=== PATIENT | male | born 1985 | race Caucasian/White ===

== ENCOUNTER 2018-06-13 05:05 | Emergency (ER) | payer SELFPAY ==
[~2018-06-13] VITALS: Ht 188 cm; Wt 98.0 kg
[~2018-06-13 05:05] MED LIST: ACHD5005 PO; AZIT-21 PO; BSP10T PO; CHLO100T22; FAMO20TA5 PO; HYDR1TAB PO; IBP800T PO; TRL300
[2018-06-13 05:13] VITALS: BP 120/114
--- NOTE | 2018-06-13 05:46 | ED Psychosocial ---
General Chief Complaint: Psych/Social Disorder Stated Complaint: PSYCH EVAL Source: patient Exam Limitations: intoxication (PT APPEARS TO BE UNDER THE INFLUENCE OF SOME SUBSTANCE/S AND CANNOT COMPLETE SENTENCES AND SPEECH IS ERRATIC. ) History of Present Illness Date Seen by Provider: Jun 13, 2018 Time Seen by Provider: 05:20 Initial Comments PT ARRIVES VIA POV PT STATES "I'M A IV DRUG USER" "METH" STATES HE WANTS 'DETOX" PT CLAIMS HE HAS NOT USED METH FOR 3-4 DAYS, AND CLAIMS HE JUST GOT OUT OF SENIOR CARE 3-4 DAYS AGO PT STATES "I'M PARANOID SCHIZOPHRENIC" PT STATES HE HAS BEEN ON SEROQUEL AND REMERON, BUT IS UNABLE TO STATE WHEN HE LAST TOOK ANY MEDICATIONS, BUT DOES STATE HE HAS NOT HAD ANY SINCE HE HAS BEEN OUT OF SENIOR CARE PT'S SPEECH IS VERY ERRATIC AND DIFFICULTY COMPLETING SENTENCES PT STATES "OK YOU'RE KBI. I DON'T WANT TO TALK TO YOU ANYMORE, YOU'RE NOT A DR. I CAN TELL BY YOUR HANDS. I KNOW YOU-YOU USED TO RIDE AROUND WITH MY SISTER" 0540- PT NOW STATES HE IS LEAVING AND PROMPTLY LEFT ER. (PT REPORTEDLY WALKED TO ER). PT LEFT BEFORE EXAM AND LAB COULD BE COMPLETED. PT NOTED TO BE TALKING TO HIMSELF NONSENSICALLY PT DID NOT MAKE ANY SUICIDAL THREATS AND DID NOT MAKE ANY THREATS TO STAFF PCP: CAMERON CAPONE, [facility] Allergies and Home Medications Allergies Uncoded Allergies: PCN (Allergy, Mild, 01/28/09) Home Medications Buspirone Hcl 10 Mg Tablet, 1 TAB PO TID, (Reported) Hydrocodone Bit/Acetaminophen 1 Each Tablet, 1-2 EACH PO Q6H PRN Prescribed by: FLAKO BERGER on 03/11/12 1258 Ibuprofen 800 Mg Tab, 800 MG PO Q8HR PRN Prescribed by: FLAKO BERGER on 03/11/12 1258 Patient Home Medication List Home Medication List Reviewed: Yes Review of Systems Constitutional: other (UNABLE TO OBTAIN) Past Osjmnyf-Uovmbd-Ureyoi Hx Patient Social History Recreational Drug Use: Yes (+ IV METH USE) Drug of Choice: + IV METH USE Smoking Status: Current Everyday Smoker Type Used: Cigarettes Past Medical History Psychosocial: Yes (+ IV METH USE) Schizophrenia Physical Exam Vital Signs - First Documented 06/13/18 05:13 Temp 100.1 Pulse 113 Resp 22 B/P (MAP) 120/114 (116) Pulse Ox 98 O2 Delivery Room Air Capillary Refill : Height, Weight, BMI Height: 6'2" Weight: 215lbs. oz. 97.037440mp; BMI Method:Stated General Appearance: other (PT APPEARS TO BE UNDER THE INFLUENCE OF SOME SUBSTANCE/S. PT WITH CONSTANT MOVEMENTS OF ENTIRE BODY AND MOUTH, SPEECH RAPID AND ERRATIC, WITH DIFFICULTY COMPLETING SENTENCES. UNABLE TO PERFORM REST OF EXAM DUE TO PT WANTING ME TO LEAVE ROOM AND THEN PT PROMPTLY LEFT ER. ) Neurologic/Psychiatric: other ( ABOVE) Appearance/Memory: disheveled, impaired insight Behavior/Eye Contact: increased rate of speech, other (TALKING TO HIMSELF NON- SENSICALLY ) Thoughts/Hallucinations: delusions, flight of ideas, paranoid Skin: tattoos/piercings (EXTENSIVE TATTOOS) Progress/Results/Core Measures Results/Orders My Orders Orders - MARICHUY SANCHES DO Ua Culture If Indicated (06/13/18 05:37) Thyroid Analyzer (06/13/18 05:37) Drug Screen Stat (Urine) (06/13/18 05:37) Cbc With Automated Diff (06/13/18 05:37) Comprehensive Metabolic Panel (06/13/18 05:37) Alcohol (06/13/18 05:37) Acetaminophen (06/13/18 05:37) Salicylate (06/13/18 05:37) Ekg Tracing (06/13/18 05:37) Vital Signs/I&O 06/13/18 05:13 Temp 100.1 Pulse 113 Resp 22 B/P (MAP) 120/114 (116) Pulse Ox 98 O2 Delivery Room Air Departure Impression Primary Impression: Left against medical advice Disposition: 07 AGAINST MEDICAL ADVICE Condition: Against Medical Advice Departure-Patient Inst. Referrals: [facility] (PCP/Family) Primary Care Physician MARICHUY SANCHES DO Jun 13, 2018 05:46
== END 2018-06-13 05:41 | disposition left against medical advice (07) ==
LOC: EDUNIT# 05:05 → ER 05:06
DX: R46.2 Strange and inexplicable behavior (principal); R47.81 Slurred speech; F20.9 Schizophrenia, unspecified; F15.10 Other stimulant abuse, uncomplicated; F17.210 Nicotine dependence, cigarettes, uncomplicated; Z88.0 Allergy status to penicillin
CPT/HCPCS: 93005; 99284

== ENCOUNTER 2018-06-13 07:58 | Emergency (ER) | payer SELFPAY ==
[~2018-06-13] VITALS: Ht 188 cm; Wt 97.5 kg
[2018-06-13] MEDS ORDERED: OLANZapine 5 MG ODT (ZyPREXA ZYDIS) ONE (08:23)
[2018-06-13] MEDS ORDERED: NS IV 1000 ML 1,000 ML IV ONE (08:25)
[2018-06-13] MEDS ORDERED: OLANZapine 5 MG ODT (ZyPREXA ZYDIS) PO ONE (08:30)
--- NOTE | 2018-06-13 08:33 | ED Psychosocial ---
General Stated Complaint: PSYCH EVAL;PARANOIA Source: patient Exam Limitations: no limitations (ANGIE GONZALEZ MD) History of Present Illness Date Seen by Provider: Jun 13, 2018 Time Seen by Provider: 08:05 Initial Comments Here with report of paranoia. Very challenging history due to his paranoia. He states that he doesn't want to hurt anybody he doesn't want to hurt himself but he believes the still operator brandy were trying to get him. He states he just got out of retirement. Reports using IV methamphetamine 3 days ago but none since. Apparently has history of methamphetamine abuse. Denies injury. Timing/Duration: getting worse Severity: moderate Associated Symptoms: anxiety, impaired concentration (ANGIE GONZALEZ MD) Allergies and Home Medications Allergies Uncoded Allergies: PCN (Allergy, Mild, 01/28/09) Home Medications Buspirone Hcl 10 Mg Tablet, 1 TAB PO TID, (Reported) Hydrocodone Bit/Acetaminophen 1 Each Tablet, 1-2 EACH PO Q6H PRN Prescribed by: FLAKO BERGER on 03/11/12 1258 Ibuprofen 800 Mg Tab, 800 MG PO Q8HR PRN Prescribed by: FLAKO BERGER on 03/11/12 1258 Patient Home Medication List Home Medication List Reviewed: Yes (ANGIE GONZALEZ MD) Review of Systems Constitutional: see HPI; No chills, No fever Respiratory: No cough, No short of breath Cardiovascular: no symptoms reported Gastrointestinal: no symptoms reported Musculoskeletal: no symptoms reported Psychiatric/Neurological: See HPI, Anxiety, Emotional Problems (ANGIE GONZALEZ MD) All Other Systems Reviewed Negative Unless Noted: Yes (ANGIE GONZALEZ MD) Past Lktgywm-Uqisss-Rkwqjs Hx Past Med/Social Hx: Reviewed Nursing Past Med/Soc Hx (ANGIE GONZALEZ MD) Patient Social History Alcohol Use: Denies Use Recreational Drug Use: Yes Drug of Choice: + IV METH USE Smoking Status: Current Everyday Smoker Type Used: Cigarettes 2nd Hand Smoke Exposure: Yes Recent Hopitalizations: No (ANGIE GONZALEZ MD) Immunizations Up To Date Tetanus Booster (TDap): Unknown (ANGIE GONZALEZ MD) Seasonal Allergies Seasonal Allergies: No (ANGIE GONZALEZ MD) Past Medical History Surgeries: Yes (finger amputation) Respiratory: No Cardiac: No Neurological: No Genitourinary: No Gastrointestinal: No Musculoskeletal: No Endocrine: No HEENT: No Cancer: No Psychosocial: Yes (+ IV METH USE) Schizophrenia Integumentary: No Blood Disorders: No Adverse Reaction/Blood Tranf: No (ANGIE GONZALEZ MD) Family Medical History Reviewed Nursing Family Hx (ANGIE GONZALEZ MD) Physical Exam Vital Signs - First Documented 06/13/18 08:00 Temp 97.9 Pulse 118 Resp 18 B/P (MAP) 112/94 (100) Pulse Ox 95 (CHINO CABA APRN) Capillary Refill : (ANGIE GONZALEZ MD) Height, Weight, BMI Height: 6'2" Weight: 216lbs. oz. 97.505750ah; 27.60 BMI Method:Stated General Appearance: WD/WN, no apparent distress Neck: full range of motion, supple; No lymphadenopathy (R), No lymphadenopathy (L) Respiratory: lungs clear, normal breath sounds Cardiovascular: no murmur, tachycardia Gastrointestinal: non tender, soft Extremities: non-tender, normal inspection Neurologic/Psychiatric: alert, oriented x 3 Appearance/Memory: disheveled, impaired insight Behavior/Eye Contact: increased rate of speech, belligerent, uncooperative Thoughts/Hallucinations: delusions, flight of ideas, paranoid, phobic Skin: normal color, warm/dry (ANGIE GONZALEZ MD) Progress/Results/Core Measures Results/Orders Lab Results Laboratory Tests Test 06/13/18 08:55 06/13/18 10:50 Range/Units White Blood Count 11.0 4.3-11.0 10^3/uL Red Blood Count 3.91 L 4.35-5.85 10^6/uL Hemoglobin 12.0 L 13.3-17.7 G/DL Hematocrit 35 L 40-54 % Mean Corpuscular Volume 89 80-99 FL Mean Corpuscular Hemoglobin 31 25-34 PG Mean Corpuscular Hemoglobin Concent 35 32-36 G/DL Red Cell Distribution Width 13.8 10.0-14.5 % Platelet Count 287 130-400 10^3/uL Mean Platelet Volume 11.6 H 7.4-10.4 FL Neutrophils (%) (Auto) 70 42-75 % Lymphocytes (%) (Auto) 19 12-44 % Monocytes (%) (Auto) 9 0-12 % Eosinophils (%) (Auto) 1 0-10 % Basophils (%) (Auto) 1 0-10 % Neutrophils # (Auto) 7.7 1.8-7.8 X 10^3 Lymphocytes # (Auto) 2.1 1.0-4.0 X 10^3 Monocytes # (Auto) 1.0 0.0-1.0 X 10^3 Eosinophils # (Auto) 0.1 0.0-0.3 10^3/uL Basophils # (Auto) 0.1 0.0-0.1 10^3/uL Sodium Level 140 135-145 MMOL/L Potassium Level 3.6 3.6-5.0 MMOL/L Chloride Level 105 98-107 MMOL/L Carbon Dioxide Level 22 21-32 MMOL/L Anion Gap 13 5-14 MMOL/L Blood Urea Nitrogen 12 7-18 MG/DL Creatinine 0.78 0.60-1.30 MG/DL Estimat Glomerular Filtration Rate > 60 BUN/Creatinine Ratio 15 Glucose Level 95 70-105 MG/DL Calcium Level 9.4 8.5-10.1 MG/DL Corrected Calcium 9.0 8.5-10.1 MG/DL Total Bilirubin 0.8 0.1-1.0 MG/DL Aspartate Amino Transf (AST/SGOT) 28 5-34 U/L Alanine Aminotransferase (ALT/SGPT) 41 0-55 U/L Alkaline Phosphatase 69 40-136 U/L Total Protein 7.5 6.4-8.2 GM/DL Albumin 4.5 3.2-4.5 GM/DL TSH [place] Testing 0.54 0.35-4.94 UIU/ML Salicylates Level < 5.0 L 5.0-20.0 MG/DL Acetaminophen Level < 10 L 10-30 UG/ML Serum Alcohol < 10 <10 MG/DL Urine Color YELLOW Urine Clarity CLEAR Urine pH 7 5-9 Urine Specific [place] 1.005 L 1.016-1.022 Urine Protein NEGATIVE NEGATIVE Urine Glucose (UA) NEGATIVE NEGATIVE Urine Ketones NEGATIVE NEGATIVE Urine Nitrite NEGATIVE NEGATIVE Urine Bilirubin NEGATIVE NEGATIVE Urine Urobilinogen NORMAL NORMAL MG/DL Urine Leukocyte Esterase NEGATIVE NEGATIVE Urine RBC (Auto) NEGATIVE NEGATIVE Urine RBC NONE /HPF Urine WBC NONE /HPF Urine Squamous Epithelial Cells RARE /HPF Urine Crystals NONE /LPF Urine Bacteria NEGATIVE /HPF Urine Casts NONE /LPF Urine Mucus NEGATIVE /LPF Urine Culture Indicated NO Urine Opiates Screen NEGATIVE NEGATIVE Urine Oxycodone Screen NEGATIVE NEGATIVE Urine Methadone Screen NEGATIVE NEGATIVE Urine Propoxyphene Screen NEGATIVE NEGATIVE Urine Barbiturates Screen NEGATIVE NEGATIVE Ur Tricyclic Antidepressants Screen NEGATIVE NEGATIVE Urine Phencyclidine Screen NEGATIVE NEGATIVE Urine Amphetamines Screen POSITIVE H NEGATIVE Urine Methamphetamines Screen POSITIVE H NEGATIVE Urine Benzodiazepines Screen NEGATIVE NEGATIVE Urine Cocaine Screen NEGATIVE NEGATIVE Urine Cannabinoids Screen NEGATIVE NEGATIVE (CHINO CABA APRN) Medications Given in ED Current Medications Medications Dose Ordered Sig/Ortega Route Start Time Stop Time Status Last Admin Dose Admin Olanzapine 10 mg ONCE ONCE PO 06/13/18 08:30 06/13/18 08:31 DC 06/13/18 08:25 10 MG Sodium Chloride 1,000 ml @ 0 mls/hr Q0M ONCE IV 06/13/18 08:25 06/13/18 08:27 DC 06/13/18 09:45 1,000 MLS/HR Sterile Water 20 ml @ ud STK-MED ONCE .ROUTE 06/13/18 08:35 06/13/18 08:39 DC 06/13/18 09:05 1.2 MLS/HR Ziprasidone 20 mg ONCE ONCE IM 06/13/18 08:45 06/13/18 08:46 DC 06/13/18 08:45 20 MG (CHINO CABA APRN) Vital Signs/I&O 06/13/18 08:00 Temp 97.9 Pulse 118 Resp 18 B/P (MAP) 112/94 (100) Pulse Ox 95 (CHINO CABA APRN) Progress Progress Note : Progress Note Seen and evaluated. Check in. Patient was here earlier but did not stay. He stated the doctor was NATHAN Gonzalez and he would not stay for evaluation. He had reported methamphetamine use earlier and also paranoid schizophrenia. This continues now. Patient is very agitated. He is only along for certain portions of the exam. We were able to get sick evaluation and vital signs with patient becoming quite agitated and paranoid. We did try Zyprexa zydis 10 mg by mouth. Patient states he took the pills but actually didn't and spit them into the cup that he was using to drink water from. Due to persistent and increasing agitation, law enforcement was called for assistance. We will give Geodon 20 mg IM. 1035: We were ultimately able to get IV and labs. We're pending UA. Patient is resting peacefully without distress currently. We have given a liter of fluid and patient did eat a regular breakfast. Monitor patient. (ANGIE GONZALEZ MD) Departure Communication (Admissions) 1410-alert, no distress. No homicidal or suicidal verbalizations. Handwritten prescription for BuSpar 5 mg by mouth 3 times a day #30. (CHINO CABA APRN) Impression Primary Impression: Drug abuse Additional Impression: Paranoid schizophrenia Disposition: HOME, SELF-CARE Condition: Improved Departure-Patient Inst. Decision time for Depature: 12:17 (CHINO CABA APRN) Referrals: [facility] [place] Primary Care Physician Patient Instructions: Drug Abuse and Drug Addiction (DC) ANGIE GONZALEZ MD Jun 13, 2018 08:33 CHINO CABA APRN Jun 13, 2018 12:17
[2018-06-13] MEDS ORDERED: ZIPRASIDONE 20 MG INJ (GEODON) VIAL IM ONE ×2 (08:35→08:45)
[2018-06-13] MEDS ORDERED: WATER (STERILE) FOR INJECTION 20 ML ONE (08:35)
[2018-06-13 09:04] LABS: BASOPHILS # (AUTO) 0.1 10^3/uL (0.0-0.1); BASOPHILS % (AUTO) 1 % (0-10); EOSINOPHILS # (AUTO) 0.1 10^3/uL (0.0-0.3); EOSINOPHILS % (AUTO) 1 % (0-10); HEMATOCRIT 35 % (40-54); LYMPHOCYTES # (AUTO) 2.1 X 10^3 (1.0-4.0); LYMPHOCYTES % (AUTO) 19 % (12-44); MEAN CORPUSCULAR HEMOGLOBIN 31 PG (25-34); MEAN CORPUSCULAR HGB CONC 35 G/DL (32-36); MEAN CORPUSCULAR VOLUME 89 FL (80-99); MEAN PLATELET VOLUME 11.6 FL (7.4-10.4); MONOCYTES % (AUTO) 9 % (0-12); NEUTROPHILS # (AUTO) 7.7 X 10^3 (1.8-7.8); NEUTROPHILS % (AUTO) 70 % (42-75); PLATELET COUNT 287 10^3/uL (130-400); RED BLOOD COUNT 3.91 10^6/uL (4.35-5.85); RED CELL DISTRIBUTION WIDTH 13.8 % (10.0-14.5)
[2018-06-13 09:25] LABS: ALANINE AMINOTRANSFERASE 41 U/L (0-55); ALBUMIN 4.5 GM/DL (3.2-4.5); ALKALINE PHOSPHATASE 69 U/L (40-136); BILIRUBIN,TOTAL 0.8 MG/DL (0.1-1.0); BUN/CREATININE RATIO 15; CALCIUM 9.4 MG/DL (8.5-10.1); CARBON DIOXIDE 22 MMOL/L (21-32); CHLORIDE 105 MMOL/L (98-107); CREATININE SERUM 0.78 MG/DL (0.60-1.30); GFR ESTIMATED > 60; GLUCOSE 95 MG/DL (70-105); POTASSIUM 3.6 MMOL/L (3.6-5.0); SALICYLATE < 5.0 MG/DL (5.0-20.0); SODIUM 140 MMOL/L (135-145); TOTAL PROTEIN 7.5 GM/DL (6.4-8.2)
[2018-06-13 09:30] LABS: ACETAMINOPHEN < 10 UG/ML (10-30)
[2018-06-13 10:57] LABS: BILIRUBIN,URINE NEGATIVE (NEGATIVE); CLARITY,URINE CLEAR; COLOR,URINE YELLOW; GLUCOSE, URINE (UA) NEGATIVE (NEGATIVE); KETONES,URINE NEGATIVE (NEGATIVE); LEUKOCYTE ESTERASE ,URINE NEGATIVE (NEGATIVE); NITRITE,URINE NEGATIVE (NEGATIVE); PH,URINE 7 (5-9); PROTEIN,URINE NEGATIVE (NEGATIVE); UROBILINOGEN,URINE NORMAL (NORMAL)
[2018-06-13 11:11] LABS: AMPHETAMINE SCREEN, URINE POSITIVE (NEGATIVE); BARBITURATE SCREEN URINE NEGATIVE (NEGATIVE); BENZODIAZEPINES SCREEN URINE NEGATIVE (NEGATIVE); CANNABINOID SCREEN, URINE NEGATIVE (NEGATIVE); COCAINE SCREEN URINE NEGATIVE (NEGATIVE); METHADONE STAT NEGATIVE (NEGATIVE); METHAMPHETAMINE SCREEN URINE S POSITIVE (NEGATIVE); OPIATE SCREEN URINE NEGATIVE (NEGATIVE); OXYCODONE STAT NEGATIVE (NEGATIVE); PROPOXYPHENE STAT NEGATIVE (NEGATIVE); TRICYCLIC ANTIDEPRESSANTS SCRE NEGATIVE (NEGATIVE)
[2018-06-13 11:12] LABS: BACTERIA,URINE NEGATIVE /HPF; SQUAMOUS EPITHELIAL CELL,UR RARE /HPF
[2018-06-13 14:10] VITALS: BP 112/94
== END 2018-06-13 14:10 | disposition home or self-care (01) ==
LOC: EDUNIT# 07:58 → ER 08:00
DX: F22 Delusional disorders (principal); F15.10 Other stimulant abuse, uncomplicated; F20.9 Schizophrenia, unspecified; F17.210 Nicotine dependence, cigarettes, uncomplicated; Z88.0 Allergy status to penicillin
CPT/HCPCS: 36415; 80053; 80306; 80320; 80329; 81000; 84443; 85025; 93005; 93041; 96360; 96372

== ENCOUNTER 2019-02-14 13:55 | Emergency (ER) | payer SELFPAY ==
[~2019-02-14] VITALS: Ht 188 cm; Wt 104.3 kg
[2019-02-14] MEDS ORDERED: SEROQUEL (14:07)
--- NOTE | 2019-02-14 14:37 | Diagnostic Imaging Report ---
INDICATION: Pain and swelling status post injury. Purulent discharge. COMPARISON: None. FINDINGS: Three radiographic views of the left hand were obtained. There is a linear metallic foreign object projecting within the palmar soft tissues overlying the distal interphalangeal joint of the third digit consistent with retained foreign body. There is significant asymmetric soft tissue swelling of the third digit. No distinct underlying osseous abnormality is seen. No erosive processes are identified. Joint spaces are intact. IMPRESSION: 1. Findings consistent with retained foreign body of the third digit. 2. No convincing osseous erosion. Please note, however, that osteomyelitis cannot be excluded based on radiographs alone. If there is concern for osteomyelitis, correlation with MRI is recommended. Dictated by: Dictated on workstation # [id number]
--- NOTE | 2019-02-14 14:43 | ED Upper Extremity ---
General Chief Complaint: Upper Extremity Stated Complaint: L HAND INJ Nursing Triage Note: SMASHED L HAND 2 DAYS AGO PAIN AND SWELLING NOTED. Nursing Sepsis Screen: No Definite Risk History of Present Illness Date Seen by Provider: Feb 14, 2019 Time Seen by Provider: 14:30 Initial Comments 33-year-old male presents after a crush injury to his left hand at the left middle finger. He is right-hand dominant. 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 He reports using methamphetamines last use 4 days ago. Pain/Injury Location: left 3rd finger Modifying Factors: Improves With Rest Allergies and Home Medications Allergies Uncoded Allergies: PCN (Allergy, Mild, 01/28/09) Home Medications Cephalexin 500 Mg Tablet, 500 MG PO TID Prescribed by: SONJA DANG on 02/14/19 1526 Patient Home Medication List Home Medication List Reviewed: Yes Review of Systems Constitutional: no symptoms reported, see HPI Musculoskeletal: see HPI, joint pain (left hand, specifically middle finger), joint swelling (left hand) All Other Systems Reviewed Negative Unless Noted: Yes Past Lkqdqqc-Rldvnn-Jkxydd Hx Past Med/Social Hx: Reviewed Nursing Past Med/Soc Hx Patient Social History Alcohol Use: Occasionally Uses Alcohol Beverage of Choice: Beer Recreational Drug Use: Yes (LAST USE 5 DAYS AGO 02/13/19) Drug of Choice: + IV METH USE Type Used: Cigarettes 2nd Hand Smoke Exposure: Yes Recent Foreign Travel: No Contact w/Someone Who Travel: No Recent Infectious Disease Expo: No Recent Hopitalizations: No Immunizations Up To Date Tetanus Booster (TDap): Unknown Seasonal Allergies Seasonal Allergies: No Past Medical History Surgeries: Yes (finger amputation) Respiratory: No Cardiac: No Neurological: No Genitourinary: No Gastrointestinal: No Musculoskeletal: No Endocrine: No HEENT: No Cancer: No Psychosocial: Yes (+ IV METH USE) Schizophrenia Integumentary: No Blood Disorders: No Adverse Reaction/Blood Tranf: No Physical Exam Vital Signs Vital Signs - First Documented 02/14/19 14:00 Temp 98.2 Pulse 103 Resp 18 B/P (MAP) 139/111 (120) Pulse Ox 98 O2 Delivery Room Air Capillary Refill : Less Than 3 Seconds Height, Weight, BMI Height: 6'2.00" Weight: 230lbs. oz. 104.736853hl; 27.60 BMI Method:Stated General Appearance: WD/WN, no apparent distress Cardiovascular: normal peripheral pulses, regular rate, rhythm Respiratory: chest non-tender, lungs clear Hand: Left, bone tenderness (middle finger), infection, limited ROM (secondary to pain and swelling), soft tissue tenderness, stiffness, swelling Neurologic/Psychiatric: no motor/sensory deficits, alert, normal mood/affect, oriented x 3 Skin: normal color, warm/dry Procedures/Interventions I&D : Site: left middle finger, dorsum at the DIP joint Blade Size: 11 I & D Procedure: betadine prep Progress Skin was prepped with Betadine, 1.5 ML's of 1% lidocaine used infiltrate the skin. When satisfactory local anesthetic obtained, 11 blade used to make an incision. Foreign body quickly identified. Wound irrigated with 500 ML's of sterile saline. Triple antibiotic ointment and sterile dressing applied. Patient tolerated procedure well. Progress/Results/Core Measures Results/Orders My Orders Orders - SONJA DANG Hand, Left, 3 Views (02/14/19 14:08) Lidocaine 1% Inj 20 Ml (Xylocaine 1% Inj (02/14/19 15:00) Cephalexin Capsule (Keflex Capsule) (02/14/19 15:45) Medications Given in ED Current Medications Medications Dose Ordered Sig/Ortega Route Start Time Stop Time Status Last Admin Dose Admin Cephalexin HCl 500 mg ONCE ONCE PO 02/14/19 15:45 02/14/19 15:46 DC 02/14/19 15:41 500 MG Lidocaine HCl 20 ml ONCE ONCE INJ 02/14/19 15:00 02/14/19 15:01 DC 02/14/19 15:41 20 ML Vital Signs/I&O 02/14/19 02/14/19 14:00 15:40 Temp 98.2 98.2 Pulse 103 103 Resp 18 18 B/P (MAP) 139/111 (120) 129/111 (117) Pulse Ox 98 98 O2 Delivery Room Air Blood Pressure Mean: 120 Progress Progress Note : Time: 14:30 Progress Note Patient seen and evaluated, will obtain x-ray of the hand. 1515 discharge instructions and return precautions reviewed with the patient. All questions answered. Diagnostic Imaging Diagonstic Imaging: Xray Plain Films/CT/US/NM/MRI: hand Comments Date of Exam:02/14/19 HAND, LEFT, 3 VIEWS INDICATION: Pain and swelling status post injury. Purulent discharge. COMPARISON: None. FINDINGS: Three radiographic views of the left hand were obtained. There is a linear metallic foreign object projecting within the palmar soft tissues overlying the distal interphalangeal joint of the third digit consistent with retained foreign body. There is significant asymmetric soft tissue swelling of the third digit. No distinct underlying osseous abnormality is seen. No erosive processes are identified. Joint spaces are intact. IMPRESSION: 1. Findings consistent with retained foreign body of the third digit. 2. No convincing osseous erosion. Please note, however, that osteomyelitis cannot be excluded based on radiographs alone. If there is concern for osteomyelitis, correlation with MRI is recommended. Dictated on workstation # [id number] Dict: 02/14/19 1431 Trans: 02/14/19 1437 [id number] Interpreted by: ANGIE HALL MD Electronically signed by: Reviewed: Reviewed by Me Departure Impression Primary Impression: Foreign body of left middle finger with infection Additional Impression: Cellulitis of left hand Disposition: HOME, SELF-CARE Condition: Improved Departure-Patient Inst. Decision time for Depature: 15:15 [address]errals: [facility] [place] (PCP/Family) Primary Care Physician Patient Instructions: Cellulitis (Skin Infection), Adult (DC) Add. Discharge Instructions: Take antibiotic as prescribed. Alternate between Tylenol 650 mg and ibuprofen 600 mg every 4 hours for pain. Follow-up with Korey Colon APRN 3-4 days, if symptoms are not improving sooner. Warm compresses and elevate left hand. Return to emergency department for new, urgent health care needs. All discharge instructions reviewed with patient and/or family. Voiced understanding. Scripts Cephalexin (Cephalexin) 500 Mg Tablet 500 MG PO TID, #21 TAB 0 Refills Prov: SONJA DANG 02/14/19 SONJA DANG Feb 14, 2019 14:43
[2019-02-14] MEDS ORDERED: LIDOCAINE 1% INJ 20 ML 20 ML VIAL INJ ONE (15:00)
[2019-02-14] MEDS ORDERED: CEPH500T PO (15:26)
[2019-02-14 15:40] VITALS: BP 129/111
[2019-02-14] MEDS ORDERED: CEPHALEXIN 250 MG (KEFLEX) CAP PO ONE (15:45)
== END 2019-02-14 15:40 | disposition home or self-care (01) ==
LOC: EDUNIT# 13:55 → ER 13:56
DX: S60.453A Superficial foreign body of left middle finger, initial encounter (principal); L03.114 Cellulitis of left upper limb; F20.9 Schizophrenia, unspecified; Z88.0 Allergy status to penicillin; Z77.22 Contact with and (suspected) exposure to environmental tobacco smoke (acute) (chronic); X58.XXXA Exposure to other specified factors, initial encounter
CPT/HCPCS: 73130

== ENCOUNTER 2020-08-11 06:11 | Emergency (ER) | payer SELFPAY ==
[~2020-08-11] VITALS: Ht 188 cm; Wt 136.0 kg
[~2020-08-11 06:11] MED LIST changes: +CEPH500T PO; +SEROQUEL
[2020-08-11 06:18] VITALS: BP 130/78
[2020-08-11] MEDS ORDERED: RX-CEPHALEXIN (KEFLEX) 250 MG CAP PPK#4 PO STA ×2 (06:31→06:57)
--- NOTE | 2020-08-11 06:38 | ED Lower Extremity ---
General Chief Complaint: Lower Extremity Stated Complaint: TOE NUMBESS / WANTS TO GET WARM Nursing Triage Note: toe numbness to bilateral feet. reports being outside x6hrs. Nursing Sepsis Screen: No Definite Risk Source: patient Exam Limitations: no limitations History of Present Illness Date Seen by Provider: Aug 11, 2020 Time Seen by Provider: 06:25 Initial Comments Patient arrives to the ER by private conveyance with chief complaint for the past 2 days he has been exposed to the elements because he has not had a ride home and his car broke down. He lives out of town. So his been staying in town. He says he works at [employer] and missed his last shift. He comes today complaining that he has no feeling in his toes. He does not follow with a primary care doctor. No known history of diabetes. No fever chills nausea vomiting. Allergies and Home Medications Allergies Uncoded Allergies: PCN (Allergy, Mild, 01/28/09) Patient Home Medication List Home Medication List Reviewed: Yes Review of Systems Constitutional: No chills, No diaphoresis EENTM: No ear discharge, No ear pain Respiratory: No cough, No short of breath Cardiovascular: No chest pain, No edema, No Hx of Intervention Gastrointestinal: No abdominal pain, No nausea, No vomiting Genitourinary: No decreased output, No discharge, No dysuria Musculoskeletal: No back pain, No joint pain Skin: see HPI All Other Systems Reviewed Negative Unless Noted: Yes Past Mxjanfb-Egfpec-Wfxosq Hx Patient Social History Alcohol Use: Occasionally Uses Number of Drinks Today: AA Alcohol Beverage of Choice: Beer Drug of Choice: + IV METH USE Smoking Status: Current Everyday Smoker Type Used: Cigarettes 2nd Hand Smoke Exposure: Yes Recent Infectious Disease Expo: No Recent Hopitalizations: No Immunizations Up To Date Tetanus Booster (TDap): Unknown Seasonal Allergies Seasonal Allergies: No Past Medical History Surgeries: Yes (finger amputation) Respiratory: No Cardiac: No Neurological: No Genitourinary: No Gastrointestinal: No Musculoskeletal: No Endocrine: No HEENT: No Cancer: No Psychosocial: Yes Schizophrenia Integumentary: No Blood Disorders: No Adverse Reaction/Blood Tranf: No Physical Exam Vital Signs Vital Signs - First Documented 08/11/20 06:18 Temp 36.5 Pulse 91 Resp 22 B/P (MAP) 130/78 (95) Pulse Ox 98 O2 Delivery Room Air Capillary Refill : Less Than 3 Seconds Height, Weight, BMI Height: 6'2.00" Weight: 230lbs. oz. 104.242114hk; 38.00 BMI Method:Stated General Appearance: WD/WN, other (Constant movement) HEENT: PERRL/EOMI, pharynx normal Cardiovascular: normal peripheral pulses, regular rate, rhythm Respiratory: no respiratory distress, no accessory muscle use Ankles: bilateral ankle non-tender, bilateral ankle normal inspection, bilateral ankle normal range of motion, bilateral ankle no evidence of injury Feet: bilateral foot other (Right foot first 2 toes has some mild maceration of the skin with tinea pedis and good dorsal pedal pulse 2+ out of 4. Left foot has lesser extent of maceration of the great toe and tinea pedis without significant broken skin. Calluses bilaterally.) Neurologic/Tendon: normal motor functions, sensory deficit (Decreased sensation in all 10 toes.) Neurologic/Psychiatric: alert, normal mood/affect, oriented x 3 Skin: other (Tinea pedis bilateral with some maceration of the bilateral great toes and adjacent second toe.) Progress/Results/Core Measures Results/Orders My Orders Orders - CANDICE FERGUSON Rx-Cephalexin Capsule (Rx-Keflex Capsule (08/11/20 06:31) Vital Signs/I&O 08/11/20 06:18 Temp 36.5 Pulse 91 Resp 22 B/P (MAP) 130/78 (95) Pulse Ox 98 O2 Delivery Room Air Blood Pressure Mean: 95 Progress Progress Note : Time: 06:37 Progress Note Mild frostbite but capillary refill appears to be intact. We have had him change his socks to clean dry socks. Or and allow him to warm up and look into getting him a ride home. We do not have any antifungal creams but we will provide him some moisturizers for his hands. We will provide him with a prescri ption for antifungal as well as antibiotics as he has some lesions on his arms that could turn to phlebitis. None conservative management of frostbite counseled. Patient states he has access to heat and warm running water at home. Departure Impression Primary Impression: Frostbite of great toes, bilateral Disposition: 01 HOME, SELF-CARE Condition: Stable Departure-Patient Inst. Decision time for Depature: 06:44 Referrals: [facility] (PCP/Family) Primary Care Physician Patient Instructions: Kym (PINO) Add. Discharge Instructions: Daily rewarming of your feet by soaking in tepid, lukewarm water for 20 or 30 minutes. After you remove your feet from the water thoroughly dry them and then apply a thin, and visible layer of antifungal cream pea-sized amount to each foot. Do this for 2 weeks. Keflex 500 mg 3 times a day for skin infection. As the sensation returns you may experience pain in your toes and I would rec ommend Tylenol 1000 mg every 8 hours as necessary. Moisturizing cream such as Eucerin, CeraVe, neutraDerm applied directly to your hands as necessary at least daily. All discharge instructions reviewed with patient and/or family. Voiced understanding. Scripts Cephalexin (Cephalexin) 500 Mg Tablet 500 MG PO TID for 7 Days, #21 TAB 0 Refills Prov: CANDICE FERGUSON 08/11/20 Miconazole Nitrate (Antifungal Cream) 14 Gm Cream..g. 1 GM TP DAILY for 14 Days, #2 TUBE 0 Refills Prov: CANDICE FERGUSON 08/11/20 CANDICE FERGUSON Aug 11, 2020 06:38
[2020-08-11] MEDS ORDERED: CEPH500T PO (06:48)
[2020-08-11] MEDS ORDERED: MICO14CR TP (06:48)
== END 2020-08-11 06:59 | disposition home or self-care (01) ==
LOC: EDUNIT# 06:11 → ER 06:13
DX: T33.832A Superficial frostbite of left toe(s), initial encounter (principal); T33.831A Superficial frostbite of right toe(s), initial encounter; F17.210 Nicotine dependence, cigarettes, uncomplicated; Z88.0 Allergy status to penicillin; X31.XXXA Exposure to excessive natural cold, initial encounter
CPT/HCPCS: 99283

== ENCOUNTER 2020-10-21 13:50 | Emergency (ER) | payer SELFPAY ==
[~2020-10-21] VITALS: Ht 187 cm; Wt 117.0 kg
[~2020-10-21 13:50] MED LIST changes: +MICO14CR TP
[2020-10-21] MEDS ORDERED: SULF1TAB35 PO (16:08)
--- NOTE | 2020-10-21 16:08 | ED Integumentary General ---
General Chief Complaint: Skin/Wound Problems Stated Complaint: SORES ON R ARM/L HAND PAIN Nursing Triage Note: Pt here with scabs on hands and lower arms x 4 days. Pt is an IV drug user. Source: patient Exam Limitations: no limitations History of Present Illness Date Seen by Provider: October 21, 2020 Time Seen by Provider: 15:55 Initial Comments Patient presents ER by private conveyance with chief complaint of bug bite redness and streaks on his forearms and hands. Admits to IV methamphetamine use but not recently. No fevers chills cough shortness of air. No chest pain Allergies and Home Medications Allergies Uncoded Allergies: PCN (Allergy, Mild, 01/28/09) Home Medications Cephalexin 500 Mg Tablet, 500 MG PO TID Prescribed by: CANDICE FERGUSON on 08/11/20 0648 Miconazole Nitrate 14 Gm Cream..g., 1 GM TP DAILY Prescribed by: CANDICE FERGUSON on 08/11/20 0648 Patient Home Medication List Home Medication List Reviewed: Yes Review of Systems Review of Systems Constitutional: No chills, No diaphoresis EENTM: No ear discharge, No ear pain Respiratory: No cough, No short of breath Cardiovascular: No chest pain, No palpitations Gastrointestinal: No abdominal pain, No heartburn, No nausea, No vomiting Genitourinary: No discharge, No dysuria Musculoskeletal: No back pain, No joint pain Skin: see HPI Past Yrthrxj-Edmcjt-Qfgrca Hx Patient Social History Alcohol Use: Denies Use Number of Drinks Today: AA Alcohol Beverage of Choice: Beer Drug of Choice: + IV METH USE Smoking Status: Current Everyday Smoker Type Used: Cigarettes 2nd Hand Smoke Exposure: Yes Recent Infectious Disease Expo: No Recent Hopitalizations: No Immunizations Up To Date Tetanus Booster (TDap): Unknown Seasonal Allergies Seasonal Allergies: No Past Medical History Surgeries: Yes (finger amputation) Respiratory: No Cardiac: No Neurological: No Genitourinary: No Gastrointestinal: No Musculoskeletal: No Endocrine: No HEENT: No Cancer: No Psychosocial: Yes Schizophrenia Integumentary: No Blood Disorders: No Adverse Reaction/Blood Tranf: No Physical Exam Vital Signs Vital Signs - First Documented 10/21/20 14:07 Temp 36.0 Pulse 67 Resp 18 B/P (MAP) 163/103 (123) Pulse Ox 100 O2 Delivery Room Air Capillary Refill : Less Than 3 Seconds General Appearance: WD/WN, no apparent distress HEENT: PERRL/EOMI, pharynx normal Neck: full range of motion, normal inspection Cardiovascular: normal peripheral pulses, regular rate, rhythm Respiratory: no respiratory distress, no accessory muscle use Extremities: normal range of motion, non-tender, normal capillary refill Neurologic/Psychiatric: alert, normal mood/affect, oriented x 3 Skin: other (Multiple 1 cm lesions that appear to be infected injection sites with slight erythema around them but no induration fluctuance or discharge.) Progress/Results/Core Measures Results/Orders Vital Signs/I&O 10/21/20 14:07 Temp 36.0 Pulse 67 Resp 18 B/P (MAP) 163/103 (123) Pulse Ox 100 O2 Delivery Room Air Blood Pressure Mean: 123 Progress Progress Note : Time: 16:06 Progress Note We will get him started on some Bactrim. Return precautions discussed Departure Impression Primary Impression: Phlebitis Disposition: 01 HOME, SELF-CARE Condition: Stable Departure-Patient Inst. Decision time for Depature: 16:06 Referrals: [facility] [place] Primary Care Physician Patient Instructions: Phlebitis (DC) Add. Discharge Instructions: You have infection of the superficial veins of your forearms. Bactrim 1 tablet twice a day with food for the next week should get it cleared up. Expect improvement in about 3 to 4 days of antibiotics. Return to the ER promptly if you are having fever above 102.5, redness engulfing your entire arm, intractable nausea and vomiting or other worrisome symptoms. Tylenol 650 mg every 8 hours as necessary for pain. Ibuprofen 800 mg every 8 hours as necessary for pain. All discharge instructions reviewed with patient and/or family. Voiced understanding. Scripts Sulfamethoxazole/Trimethoprim (Bactrim Ds Tablet) 1 Each Tablet 1 EACH PO BID, #14 TAB 0 Refills Prov: CANDICE FERGUSON 10/21/20 CANDICE FERGUSON October 21, 2020 16:08
[2020-10-21] MEDS ORDERED: TRIM/SULFAMETH 160/800 (SEPTRA DS) TAB PO ONE (16:15)
[2020-10-21 16:18] VITALS: BP 150/88
== END 2020-10-21 16:20 | disposition home or self-care (01) ==
LOC: EDUNIT# 13:50 → ER 13:51
DX: I80.9 Phlebitis and thrombophlebitis of unspecified site (principal); F17.210 Nicotine dependence, cigarettes, uncomplicated; Z88.0 Allergy status to penicillin
CPT/HCPCS: 99283

== ENCOUNTER 2020-10-22 00:26 | Emergency (ER) | payer SELFPAY ==
[~2020-10-22] VITALS: Ht 188 cm; Wt 118.2 kg
[~2020-10-22 00:26] MED LIST changes: +SULF1TAB35 PO
[2020-10-22] MEDS ORDERED: CLINDAMYCIN 600 MG/4ML (CLEOCIN) VIAL IM ONE (03:45)
--- NOTE | 2020-10-22 03:46 | ED Integumentary General ---
General Chief Complaint: Skin/Wound Problems Stated Complaint: INFECTION,POSS BLOOD POISONING Nursing Triage Note: PRESENTS TO FT2 W/CO WOUNDS. STATES HE WAS SEEN IN THIS ER ON 10/21/20 D/T SAME SX AND PRESCRIBED ABX. STATES HE BELIEVES WOUNDS HAVE WORSENED AND STATES HE "WANTS A BLOOD TEST." STATES "SOMEONE GAVE ME BAD DOPE." Source: patient Exam Limitations: no limitations History of Present Illness Date Seen by Provider: October 22, 2020 Time Seen by Provider: 03:25 Initial Comments This 35-year-old man presents to the emergency room with complaints of numerous skin sores that are primarily crusted and scabbed but some are oozing purulent drainage. He was seen in the ER yesterday and prescribed Bactrim. He was advised that these would take a few days to start healing after antibiotics were started. He presents tonight with the same complaint. Allergies and Home Medications Allergies Uncoded Allergies: PCN (Allergy, Mild, 01/28/09) Home Medications Cephalexin 500 Mg Tablet, 500 MG PO TID Prescribed by: CANDICE FERGUSON on 08/11/20 0648 Miconazole Nitrate 14 Gm Cream..g., 1 GM TP DAILY Prescribed by: CANDICE FERGUSON on 08/11/20 0648 Sulfamethoxazole/Trimethoprim 1 Each Tablet, 1 EACH PO BID Prescribed by: CANDICE FERGUSON on 10/21/20 1608 Patient Home Medication List Home Medication List Reviewed: Yes Review of Systems Review of Systems Constitutional: no symptoms reported EENTM: no symptoms reported Respiratory: no symptoms reported Cardiovascular: no symptoms reported Gastrointestinal: no symptoms reported Genitourinary: no symptoms reported Musculoskeletal: no symptoms reported Skin: see HPI Psychiatric/Neurological: Other (Agitated, dystonic movements) Endocrine: No Symptoms Reported Past Uuwmzny-Pyojyj-Jbsmip Hx Past Med/Social Hx: Reviewed Nursing Past Med/Soc Hx Patient Social History Alcohol Beverage of Choice: Beer Drug of Choice: + IV METH USE Type Used: Cigarettes 2nd Hand Smoke Exposure: Yes Recent Infectious Disease Expo: No Recent Hopitalizations: No Immunizations Up To Date Tetanus Booster (TDap): Unknown Seasonal Allergies Seasonal Allergies: No Past Medical History Surgeries: Yes (finger amputation) Respiratory: No Cardiac: No Neurological: No Genitourinary: No Gastrointestinal: No Musculoskeletal: No Endocrine: No HEENT: No Cancer: No Psychosocial: Yes Schizophrenia Integumentary: No Blood Disorders: No Adverse Reaction/Blood Tranf: No Physical Exam Vital Signs Vital Signs - First Documented 10/22/20 01:21 Temp 36.3 Pulse 95 Resp 18 B/P (MAP) 131/87 (102) Pulse Ox 99 O2 Delivery Room Air Capillary Refill : Less Than 3 Seconds General Appearance: WD/WN, no apparent distress (Leaping upon entry to the room) HEENT: normal ENT inspection Cardiovascular: regular rate, rhythm, no edema Respiratory: lungs clear, normal breath sounds, no respiratory distress Neurologic/Psychiatric: alert, other (Agitated, aggressive and tone in demeanor) Skin: other (Numerous scabbed and crusted sores on the upper extremities, some oozing a small amount of purulent material. None appeared abscessed) Progress/Results/Core Measures Results/Orders My Orders Orders - FLAKO BOWEN MD Clindamycin Injection (Cleocin Injection (10/22/20 03:45) Clindamycin Injection (Cleocin Injection (10/22/20 04:17) Medications Given in ED Current Medications Medications Dose Ordered Sig/Ortega Route Start Time Stop Time Status Last Admin Dose Admin Clindamycin Phosphate 600 mg ONCE ONCE IM 10/22/20 03:45 10/22/20 03:46 DC 10/22/20 04:52 600 MG Vital Signs/I&O 10/22/20 10/22/20 01:21 05:05 Temp 36.3 36.3 Pulse 95 95 Resp 18 18 B/P (MAP) 131/87 (102) 131/87 (102) Pulse Ox 99 99 O2 Delivery Room Air Blood Pressure Mean: 102 Progress Progress Note : Progress Note Patient was in deep sleep when I went to examine him. He awoke very startled. He seemed extremely agitated and had dystonic movements. I examined his skin s ores. None appeared abscessed but a few more oozing a small amount of purulent material. He did fill his antibiotic and started it. Patient was offered a clindamycin injection to expedite the treatment. I was later called back to the exam room as patient was getting upset and agitated. Patient states he believes the sores were caused by "bad dope." He believes someone poisoned him. He wants tested for poisoning. I offered him a urine drug screen but stated that I did not have any other general "poisoning test". Patient became belligerent and was threatening in his tone and posture. I was concerned for the safety of my staff at this point. I asked him to leave or I would be asking police to escort him off the property. Patient left the property without the need for law enforcement intervention. Departure Impression Primary Impression: Skin sore Additional Impressions: Cellulitis Qualified Codes: L03.119 - Cellulitis of unspecified part of limb Aggressive behavior Disposition: HOME, SELF-CARE Condition: Stable Departure-Patient Inst. Decision time for Depature: 03:45 Referrals: [facility] (PCP/Family) Primary Care Physician Patient Instructions: Cellulitis (Skin Infection), Adult (DC) Add. Discharge Instructions: Complete your antibiotics as prescribed. Allow several days for the antibiotics to improve your symptoms. Call with questions or concerns. Return to care if you have worsening symptoms. All discharge instructions reviewed with patient and/or family. Voiced understanding. FLAKO BOWEN MD October 22, 2020 03:46
[2020-10-22] MEDS ORDERED: CLINDAMYCIN 600 MG/4ML (CLEOCIN) VIAL ONE (04:17)
[2020-10-22 05:05] VITALS: BP 131/87
== END 2020-10-22 05:06 | disposition home or self-care (01) ==
LOC: EDUNIT# 00:26 → ER 00:29
DX: L98.9 Disorder of the skin and subcutaneous tissue, unspecified (principal); L03.119 Cellulitis of unspecified part of limb; F91.8 Other conduct disorders; Z77.22 Contact with and (suspected) exposure to environmental tobacco smoke (acute) (chronic); Z88.0 Allergy status to penicillin
CPT/HCPCS: 99284

== ENCOUNTER 2021-02-04 09:19 | Emergency (ER) | payer SELFPAY ==
[~2021-02-04 09:19] MED LIST changes: -MICO14CR TP; +MICO14CR7 TP; -SULF1TAB35 PO; +SULF1TAB38 PO
[2021-02-05] MEDS ORDERED: SULF1TAB38 PO (21:39)
== END 2021-02-04 09:25 | disposition left against medical advice (07) ==
LOC: EDUNIT# 09:19 → ER 09:21
DX: R19.7 Diarrhea, unspecified (principal); R52 Pain, unspecified

== ENCOUNTER 2021-02-05 20:41 | Emergency (ER) | payer SELFPAY ==
[~2021-02-05] VITALS: Ht 180 cm; Wt 103.0 kg
[2021-02-05] MEDS ORDERED: RX-TRIMETH/SULFA. 160-800 MG (BACTRIM DS) TAB PPK#2 PO STA (21:36)
[2021-02-05] MEDS ORDERED: RX-MUPIROCIN (BACTROBAN) 2% OINT 22 GM TUBE TOP STA (21:36)
[2021-02-05] MEDS ORDERED: SULF1TAB38 PO (21:39)
--- NOTE | 2021-02-05 21:40 | ED Integumentary General ---
General Chief Complaint: Skin/Wound Problems Stated Complaint: BUMPS ON ARMS Nursing Triage Note: THE PT IS AMBULATORY TO THE ROOM WITHOUT DIFFICULTY. NO DISTRESS IS SEEN ON ARRIVAL. LOC IS NORMAL FOR THE PT. THE PT C/O OF SEVERAL SKIN WOUNDS. History of Present Illness Date Seen by Provider: Feb 05, 2021 Time Seen by Provider: 21:25 Initial Comments 35-year-old male presents with multiple small ulcerations to his hands and arms. He reports that he has been off meth for 2 days. He does have a history of MRSA. No abscesses present and no active drainage. Timing/Duration: intermittent Severity: mild Location: hands, extremities Associated Symptoms: denies symptoms Allergies and Home Medications Allergies Uncoded Allergies: PCN (Allergy, Mild, 01/28/09) Home Medications Cephalexin 500 Mg Tablet, 500 MG PO TID Prescribed by: CANDICE FERGUSON on 08/11/20 0648 Miconazole Nitrate 14 Gm Cream..g., 1 GM TP DAILY Prescribed by: CANDICE FERGUSON on 08/11/20 0648 Sulfamethoxazole/Trimethoprim 1 Each Tablet, 1 EACH PO BID Prescribed by: CANDICE FERGUSON on 10/21/20 1608 Sulfamethoxazole/Trimethoprim 1 Each Tablet, 1 EACH PO BID Prescribed by: SONJA DANG on 02/05/212138 Patient Home Medication List Home Medication List Reviewed: Yes Review of Systems Review of Systems Constitutional: no symptoms reported, see HPI Skin: see HPI, other (Small ulcerations to upper extremities bilaterally.) All Other Systems Reviewed Negative Unless Noted: Yes Past Mtvukms-Ikseug-Vfiemx Hx Patient Social History Substance use?: Yes Substance type: Methamphetamine Immunizations Up To Date Tetanus Booster (TDap): Unknown Seasonal Allergies Seasonal Allergies: No Past Medical History Surgeries: Yes (finger amputation) Respiratory: No Cardiac: No Neurological: No Genitourinary: No Gastrointestinal: No Musculoskeletal: No Endocrine: No HEENT: No Cancer: No Psychosocial: Yes Schizophrenia Integumentary: No Blood Disorders: No Adverse Reaction/Blood Tranf: No Family Medical History Reviewed Nursing Family Hx Physical Exam Vital Signs Vital Signs - First Documented 02/05/21 02/05/21 21:18 21:44 Temp 37.0 Pulse 100 Resp 18 B/P (MAP) 156/94 (114) Pulse Ox 97 Capillary Refill : Less Than 3 Seconds General Appearance: WD/WN, no apparent distress Cardiovascular: normal peripheral pulses, regular rate, rhythm Respiratory: chest non-tender, lungs clear, normal breath sounds Skin: normal color, warm/dry Skin Problem Location: upper extremities Skin Problem Character: erythema, macules Lymphatic: no adenopathy Progress/Results/Core Measures Results/Orders My Orders Orders - SONJA DANG Rx-Mupirocin 2% Oint (Rx-Bactroban) (02/05/21 21:36) Rx-Trimeth/Sulfameth Ds Tab (Rx-Bactrim/ (02/05/21 21:36) Vital Signs/I&O 02/05/21 02/05/21 21:18 21:44 Temp 37.0 37.0 Pulse 100 100 Resp 18 18 B/P (MAP) 156/94 (114) 156/94 Pulse Ox 97 Blood Pressure Mean: 114 Departure Impression Primary Impression: Skin sore Additional Impression: Methamphetamine abuse Disposition: 01 HOME, SELF-CARE Condition: Improved Departure-Patient Inst. Decision time for Depature: 21:35 Referrals: [facility] (PCP/Family) Primary Care Physician Patient Instructions: Wound Care (DC), Cellulitis (Skin Infection), Adult (DC) Add. Discharge Instructions: Keep wounds clean with soap and water. Apply antibiotic ointment 3 times daily. Take antibiotics as prescribed. Establish care with a primary care provider at [facility]. Return to the emergency department for new, urgent healthcare needs. All discharge instructions reviewed with patient and/or family. Voiced understanding. Scripts Sulfamethoxazole/Trimethoprim (Bactrim Ds Tablet) 1 Each Tablet 1 EACH PO BID, #20 TAB 0 Refills Prov: SONJA DANG 02/05/21 SONJA DANG Feb 05, 2021 21:40
[2021-02-05 21:44] VITALS: BP 156/94
== END 2021-02-05 21:45 | disposition home or self-care (01) ==
LOC: EDUNIT# 20:41 → ER 20:44
DX: L98.9 Disorder of the skin and subcutaneous tissue, unspecified (principal); F15.10 Other stimulant abuse, uncomplicated; Z86.14 Personal history of Methicillin resistant Staphylococcus aureus infection
CPT/HCPCS: 99283

== ENCOUNTER 2022-12-28 20:34 | Emergency (ER) | payer SELFPAY ==
[~2022-12-28] VITALS: Ht 190.5 cm; Wt 94.0 kg
[2022-12-28 20:47] VITALS: BP 161/93
--- NOTE | 2022-12-28 21:01 | ED Psychosocial ---
General Chief Complaint: Psych/Social Disorder Stated Complaint: PSYCH EVAL Nursing Triage Note: Pt presents with c/o anxiety and depression that has been going on for several weeks. Pt states he can not stand to be around people, he feels like he may hurt himself or someone else. Pt has no plan. Pt reports he has vision problems, and sleeps 14-16 hours per day. Pt has hx of marajuana and meth use. Source: patient Exam Limitations: no limitations History of Present Illness Date Seen by Provider: Dec 28, 2022 Time Seen by Provider: 20:56 Initial Comments Patient was being roomed by nursing staff for anxiety, depression, and feeling like he might hurt himself. While he was being triaged and roomed, I overheard him state that he would not get into a hospital gown. He stated "I will do what I have to do, I will just go to care home." He then proceeded to walk out of the building. Law enforcement will be notified of his complaints and statement for welfare check purposes. Patient was not examined by me, but I did hear this exchange with nursing staff while he was being triaged. Patient reportedly walked here from [place]. He was wearing close and appropriate for the weather including jeans and a red flannel shirt on this rather hot summer day. Allergies and Home Medications Allergies Uncoded Allergies: PCN (Allergy, Mild, 01/28/09) Patient Home Medication List Home Medication List Reviewed: Yes Cephalexin (Cephalexin) 500 Mg Tablet, 500 MG PO TID Prescribed by: CANDICE FERGUSON on 08/11/20 0648 Miconazole Nitrate (Antifungal Cream) 14 Gm Cream..g., 1 GM TP DAILY Prescribed by: CANDICE FERGUSON on 08/11/20 0648 Sulfamethoxazole/Trimethoprim (Bactrim Ds Tablet) 1 Each Tablet, 1 EACH PO BID Prescribed by: CANDICE FERGUSON on 10/21/20 1608 Sulfamethoxazole/Trimethoprim (Bactrim Ds Tablet) 1 Each Tablet, 1 EACH PO BID Prescribed by: SONJA DANG on 02/05/21 7227 Review of Systems Constitutional: no symptoms reported Psychiatric/Neurological: See HPI Past Dwbsths-Fwdshh-Dcluqm Hx Immunizations Up To Date Tetanus Booster (TDap): Unknown Influenza Vaccine Up-to-Date: No; Not Current Seasonal Allergies Seasonal Allergies: No Past Medical History Surgeries: Yes (finger amputation) Respiratory: No Cardiac: No Neurological: No Genitourinary: No Gastrointestinal: No Musculoskeletal: No Endocrine: No HEENT: No Cancer: No Psychosocial: Yes Schizophrenia Integumentary: No Blood Disorders: No Adverse Reaction/Blood Tranf: No Physical Exam Vital Signs - First Documented 12/28/22 20:47 Temp 36.7 Pulse 114 Resp 18 B/P (MAP) 161/93 (115) Capillary Refill : Less Than 3 Seconds Height, Weight, BMI Height: 6'2.00" Weight: 230lbs. oz. 104.890008qj; 25.00 BMI Method:Stated General Appearance: other (Patient left before being examined) Progress/Results/Core Measures Results/Orders My Orders Orders - FLAKO BOWEN MD Drug Screen Stat (Urine) (12/28/22 20:43) Ua Culture If Indicated (12/28/22 20:43) Vital Signs/I&O 12/28/22 20:47 Temp 36.7 Pulse 114 Resp 18 B/P (MAP) 161/93 (115) Blood Pressure Mean: 115 Departure Impression Primary Impression: Patient left without being seen Additional Impressions: Anxiety Depression Qualified Codes: F32.A - Depression, unspecified Disposition: 07 AGAINST MEDICAL ADVICE Condition: Against Medical Advice Departure-Patient Inst. Referrals: [facility] (PCP/Family) Primary Care Physician Copy Copies To 1: [facility]/FLAKO DIAMOND MD Dec 28, 2022 21:01
== END 2022-12-28 21:00 | disposition left against medical advice (07) ==
LOC: EDUNIT# 20:34 → ER 20:36
DX: F41.9 Anxiety disorder, unspecified (principal); F32.A Depression, unspecified